=== PATIENT | female | born 1995 | race Caucasian/White ===

== ENCOUNTER 2017-03-21 10:25 | Emergency (ER) | payer OTHER ==
[2017-03-21 10:29] VITALS: BP 114/74; PULSE 73; TEMP 97.3; BMI 29.8
--- NOTE | 2017-03-21 11:42 | PDOC ---
History of Present Illness - General Chief Complaint: Ear Problem Stated Complaint: EAR PROBLEM, COLD SYMPTOMS Time Seen by Provider: 03/21/17 11:14 History Source: Patient Exam Limitations: No Limitations - History of Present Illness Initial Comments: CHIEF COMPLAINT: 21 y/o afebrile female c/o left earache and crusty eyes x 2 days. HISTORY OF PRESENT ILLNESS: Patient also admits to sore throat. She states she wakes up and her eyes are stuck shut with yellow crust. Patient denies f/c, n/v/ d, CP, SOB, abd pain. SHe has not taken anything for her symptoms. Past History - Past Medical History Allergies/Adverse Reactions: Allergies Allergy/AdvReac Type Severity Reaction Status Date / Time No Known Allergies Allergy Verified 03/21/17 10:29 Home Medications: Ambulatory Orders Amoxicillin - [Amoxicillin 500mg Capsule -] 500 mg PO BID #10 capsule 03/21/17 Erythromycin 0.5% Eye Ointment [Erythromycin 0.5% Eye Ointment -] 1 applic OU TID #1 tube 03/21/17 COPD: No Other medical history: DENIES MEDICAL HX - Immunization History Immunization Up to Date: Yes - Suicide/Smoking/Psychosocial Hx Smoking History: Never smoked Hx Alcohol Use: No Drug/Substance Use Hx: No Substance Use Type: None Review of Systems - Review of Systems Able to Perform ROS?: Yes Constitutional: No: Chills, Fever HEENTM: Yes: Ear Pain (left), Nose Congestion, Throat Pain, Other (Eye dishcarge ). No: Ear Discharge, Throat Swelling, Difficulty Swallowing Respiratory: Yes: Cough. No: Shortness of Breath Cardiac (ROS): No: Chest Pain ABD/GI: No: Symptoms Reported *Physical Exam - Vital Signs Last Vital Signs Temp Pulse Resp BP Pulse Ox 97.3 F L 73 16 114/74 100 03/21/17 10:27 03/21/17 10:27 03/21/17 10:27 03/21/17 10:27 03/21/17 10:27 - Physical Exam Comments: 21 y/o female non toxic but ill appearing with very congested sounding voice. General Appearance: Yes: Nourished, Appropriately Dressed HEENT: positive: EOMI, WILLIAM, Pharynx Normal, Nasal Congestion, TM Bulging (left) , TM Dull (left), TM Erythema (left), Other (pain with palpation of left pre auricular region; yellow crusting noted b/l medial canthus of eyes). negative: Pharyngeal Erythema, Tonsillar Exudate, Tonsillar Erythema (Uvula midline. NO soft/hard palate deformities. No petechia.) Neck: negative: Tender Medical Decision Making - Medical Decision Making A/P: 21 y/o female with left otitis media and b/l conjunctivitis Plan is to send rx for amox and erythromycin oitment to her pharmacy. Suggested tylenol or motrin for supportive care, plenty of fluids and rest. Pt instructed to return to the ER with any worsening or concerning symptoms. The patient verbalizes understanding of all instructions, has no further questions and is awaiting discharge. *DC/Admit/Observation/Transfer Diagnosis at time of Disposition: Otitis media Qualifiers: Otitis media type: suppurative Chronicity: acute Laterality: left Recurrence: not specified as recurrent Spontaneous tympanic membrane rupture: without spontaneous rupture Qualified Code(s): H66.002 - Acute suppurative otitis media without spontaneous rupture of ear drum, left ear Conjunctivitis Qualifiers: Conjunctivitis type: acute Acute conjunctivitis type: bacterial Laterality: bilateral Qualified Code(s): H10.33 - Unspecified acute conjunctivitis, bilateral - Discharge Dispostion Disposition: HOME Condition at time of disposition: Good - Prescriptions Prescriptions: Amoxicillin - [Amoxicillin 500mg Capsule -] 500 mg PO BID #10 capsule Erythromycin 0.5% Eye Ointment [Erythromycin 0.5% Eye Ointment -] 1 applic OU TID #1 tube - Referrals Referrals: Chaz Suarez MD [Primary Care Provider] - - Patient Instructions Printed Discharge Instructions: DI for Conjunctivitis, DI for Otitis Media ( Middle Ear Infection)-Child Additional Instructions: Discharge Instructions: -You have an ear infection and an eye infection -2 prescriptions have been sent to your pharmacy -Please take tylenol or motrin for pain/fever -Gargle with warm salt water -Eat cold/soft foods to help with sore throat -Drink plenty of fluids and get lots of rest -Return to the ER with any worsening or concerning symptoms - Post Discharge Activity Forms/Work/School Notes: Back to Work
== END 2017-03-21 12:06 | disposition home or self-care (01) ==
LOC: JERFT 10:25
DX: H66.002 Acute suppurative otitis media without spontaneous rupture of ear drum, left ear (principal); H10.33 Unspecified acute conjunctivitis, bilateral
CPT/HCPCS: 99281-25

== ENCOUNTER 2017-12-25 14:48 | Emergency (ER) | payer OTHER ==
[2017-12-25 14:54] VITALS: BMI 29.2
[2017-12-25] MEDS ORDERED: ACETAMINOPHEN 500 MG TABLET (FP) PO ONE (14:54)
--- NOTE | 2017-12-25 14:54 | PDOC ---
Rapid Medical Evaluation Time Seen by Provider: 12/25/17 14:50 Medical Evaluation: Allergies Allergy/AdvReac Type Severity Reaction Status Date / Time No Known Allergies Allergy Verified 10/11/17 07:36 12/25/17 14:50 I have performed a brief in-person evaluation of this patient. The patient presents with a chief complaint of: Fever, urinary frequency and vomiting Pertinent physical exam findings: Lungs CTAB. +BS. Abd SNTND. -CVAT b/l. I have ordered the following: urine The patient will proceed to the ED for further evaluation. Discharge Disposition - Diagnosis Urinary frequency - Referrals - Patient Instructions - Post Discharge Activity
[2017-12-25 15:44] LABS: URINE APPEARANCE CLEAR; URINE BILIRUBIN NEGATIVE (<2.0 mg/dL); URINE COLOR YELLOW; URINE GLUCOSE (UA) NEGATIVE (NEGATIVE); URINE KETONE 1+ (NEGATIVE); URINE LEUK ESTERASE 1+ (NEGATIVE); URINE NITRITE NEGATIVE (NEGATIVE); URINE PROTEIN NEGATIVE (NEGATIVE); URINE UROBILINOGEN NEGATIVE mg/dL (0.2-1.0)
--- NOTE | 2017-12-25 15:44 | PDOC ---
History of Present Illness - General Chief Complaint: Nausea/Vomiting Stated Complaint: NAUSEA/VOMITING Time Seen by Provider: 12/25/17 14:50 - History of Present Illness Initial Comments: 22yo with no significant past medical history complaining of fever of 100.1 x 1 day. Patient reports that her symptoms started while she was at work today and checked her temperature with a thermometer of 100.1. She endorses nausea, NBNB vomiting, and body aches. Denies throat pain, rhinorrhea, or post nasal drip. Last bowel movement was today and was diarrhea without blood. Denies chest pain. Currently endorses shortness of breath and right leg pain which she reports having intermittently over the past couple years. Patient works at a day care. Denies abdominal pain. Past History - Past Medical History Allergies/Adverse Reactions: Allergies Allergy/AdvReac Type Severity Reaction Status Date / Time No Known Allergies Allergy Verified 12/25/17 14:53 Home Medications: Ambulatory Orders NK [No Known Home Medication] 12/25/17 COPD: No - Immunization History Immunization Up to Date: Yes - Suicide/Smoking/Psychosocial Hx Smoking History: Never smoked Have you smoked in the past 12 months: No Information on smoking cessation initiated: No Hx Alcohol Use: No Drug/Substance Use Hx: No Substance Use Type: None Review of Systems - Review of Systems Comments:: Constitutional: +fever, +chills HEENT: no throat pain, no dysphagia Cardiovascular: no chest pain, no palpitations Respiratory: no cough, +shortness of breath Gastrointestinal: no abdominal pain, +nausea, +vomiting, +diarrhea Genitourinary: no dysuria, +frequency Musculoskeletal: no myalgia,+leg pain Skin: no rash, no itching Neurologic: no headache, no dizziness *Physical Exam - Vital Signs Last Vital Signs Temp Pulse Resp BP Pulse Ox 100.1 F H 116 H 16 130/72 99 12/25/17 14:51 12/25/17 14:51 12/25/17 14:51 12/25/17 14:51 12/25/17 15:36 - Physical Exam Comments: General: Awake, alert, and fully oriented, in no acute distress Head: No signs of trauma Eyes: EOMI, sclera anicteric ENT: Moist mucus membranes Neck: Normal ROM, supple Lungs: Lungs clear, Normal breath sounds Cardio: Regular rhythm, S1 and S2 present Abdomen: Soft, nontender. No guarding, no rebound, no masses Extremities: Normal range of motion, Distal pulses present SKIN: Warm, Dry, normal turgor Neurologic: Cranial nerves II through XII grossly intact. Normal speech ED Treatment Course - LABORATORY CBC & Chemistry Diagram: 12/25/17 15:31 12/25/17 15:31 - Medications Given in the ED: ED Medications Discontinued Medications Generic Name Dose Route Start Last Admin Trade Name Kaylynn PRN Reason Stop Dose Admin Acetaminophen 975 mg 12/25/17 14:54 12/25/17 15:03 Tylenol - PO 12/25/17 14:55 975 mg ONCE ONE Administration Medical Decision Making - Medical Decision Making 22yo with no significant past medical history complaining of fever of 100.1 x 1 day. -DDX includes but not limited to influenza, viral illness, cholelithiasis, gastroenteritis -Patient was tender in RUQ for Dr. Llanes's exam. RUQ ultrasound ordered. Patient reports intermittent pain in this area. No history of abdominal surgeries. -Labs: influenza negative, no anemia or leukocytosis, UA negative for UTI -RUQ US -EKG: rate 81, QTc 418, normal sinus rhythm -Tylenol and 1L NS: patient reports some palliation 12/25/17 17:49 RUQ negative for acute pathology. Will discharge. Patient amenable to plan. 12/25/17 18:04 *DC/Admit/Observation/Transfer Diagnosis at time of Disposition: Abdominal pain, Urinary frequency - Discharge Dispostion Disposition: HOME Condition at time of disposition: Improved - Referrals - Patient Instructions Printed Discharge Instructions: DI for Viral Gastroenteritis -- Adult Additional Instructions: You came to the ED with a fever. Blood work and ultrasound was unremarkable. Your symptoms are most likely due to a viral syndrome. Keep hydrated with plenty of fluids. You can take tylenol or motrin for pain. Follow the instructions on the medication bottle. Follow-up with your primary care physician, Dr. Yo, within the next five to seven days to discuss this ED visit and to further evaluate your symptoms. Immediate medical attention is required if you have: worsening pain, high fevers , persistent nausea, vomiting, or any new or concerning symptoms. If you think you are having an emergency, call for emergency medical services or present to the emergency department right away - Post Discharge Activity Forms/Work/School Notes: Back to Work
[2017-12-25 15:46] LABS: EPI CELLS FEW /HPF (FEW); URINE MUCUS MODERATE
[2017-12-25 15:54] LABS: HCG,QUALITATIVE URINE Negative
[2017-12-25 15:56] LABS: BASO % 0.3 % (0-2.0); EOS % 0.5 % (0-4.5); HEMATOCRIT 39.5 % (32.4-45.2); LYMPH % 2.4 % (8-40); MCH 26.4 pg (25.7-33.7); MCHC 32.9 g/dl (32.0-36.0); MEAN CELL VOLUME 80.1 fl (80-96); MEAN PLT VOLUME 9.6 fl (7.5-11.1); NEUT % 93.8 % (42.8-82.8); PLATELET COUNT 175 K/MM3 (134-434); RBC 4.93 M/mm3 (3.60-5.2); RDW 14.8 % (11.6-15.6); WHITE BLOOD COUNT 9.5 K/mm3 (4.0-10.0)
[2017-12-25 16:23] LABS: ALBUMIN 4.2 g/dl (3.4-5.0); ALK PHOS 73 U/L (45-117); ANION GAP 7 MMOL/L (8-16); BILIRUBIN,TOTAL 1.8 mg/dL (0.2-1); BLOOD UREA NITROGEN 13 mg/dL (7-18); CALCIUM 8.9 mg/dL (8.5-10.1); CHLORIDE 103 mmol/L (98-107); CO2 25 mmol/L (21-32); CREATININE 0.7 mg/dL (0.55-1.3); GLUCOSE,RANDOM 108 mg/dL (74-106); LIPASE 208 U/L (73-393); POTASSIUM 3.9 mmol/L (3.5-5.1); SGOT/AST 16 U/L (15-37); SGPT/ALT 19 U/L (13-61); SODIUM 135 mmol/L (136-145); TOT PROT 8.3 g/dl (6.4-8.2)
[2017-12-25] MEDS ORDERED: SODIUM CHLORIDE 1,000 ML IV STA (16:23)
--- NOTE | 2017-12-25 17:06 | PDOC ---
Attending Attestation - Resident Resident Name: Katiana Crockett - ED Attending Attestation I have performed the following: I have examined & evaluated the patient, The case was reviewed & discussed with the resident, I agree w/resident's findings & plan, Exceptions are as noted - HPI HPI: 12/25/17 17:03 22 F with h/o pancreatic cysts s/p removal, presenting with fevers, nausea, vomiting, and diarrhea. Pt states that her symptoms began yesterday. She reports diffuse abdominal cramps associated with vomiting several times. Also reports a few episodes of watery brown diarrhea. Pt also has had fevers since yesterday. Does not know what her Tmax is. Pt denies CP/SOB. Denies flank pain. Endorses frequent urination but no dysuria. 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 - Physicial Exam PE: 12/25/17 17:05 GENERAL: Awake, alert, and fully oriented, in no acute distress. HEAD: No signs of trauma EYES: PERRLA, EOMI, sclera anicteric, conjunctiva clear ENT: Auricles normal inspection, hearing grossly normal, nares patent, oropharynx clear without exudates. Moist mucosa NECK: Nontender, no stepoffs, Normal ROM, supple, no lymphadenopathy, JVD, or masses LUNGS: Breath sounds equal, clear to auscultation bilaterally. No wheezes, and no crackles HEART: Regular rate and rhythm, normal S1 and S2, no murmurs, rubs or gallops ABDOMEN: + epigastric TTP, negative olsen's, normoactive bowel sounds. No guarding, no rebound. No masses EXTREMITIES: Normal range of motion, no edema. No clubbing or cyanosis. No cords, erythema, or tenderness NEUROLOGICAL: Cranial nerves II through XII intact. 5/5 strength and sensation in all extremities, Normal speech, normal gait, normal cerebellar function SKIN: Warm, Dry, normal turgor, no rashes or lesions noted. - Medical Decision Making 12/25/17 17:05 22 F with fevers, N+V+D. Exam notable for epigastric TTP. Negative olsen's. No lower abdominal tenderness or CVAT. Likely viral gastroenteritis given sick contacts. Also consider UTI as pt reports frequent urination. - Labs, lipase - UA, UPT - Flu swab - IVF, tylenol 12/25/17 17:38 Labs notable for bili 1.8 Pt with negative olsen's but will evaluate for gallbladder pathology with US 12/25/17 18:04 US negative Pt's UA with 1+ LE and 4 WBCs. Will defer tx until UCx returns Pt reassessed - vitals now wnl Pt states she feels much better. Pt is well appearing, with normal vitals. Clinically stable for DC at this time. I discussed the physical exam findings, ancillary test results and final diagnoses with the patient. I answered all of the patient's questions. The patient was satisfied with the care received and felt comfortable with the discharge plan and treatment plan. The patient agrees to follow up with the primary care physician within 24-72 hours.
[2017-12-25 18:29] VITALS: BP 110/71; PULSE 81; TEMP 98.6
[2017-12-25 18:53] LABS: PLATELET ESTIMATE ADEQUATE
--- NOTE | 2017-12-26 11:51 | EKG ---
Test Reason : Blood Pressure : / mmHG Vent. Rate : 081 BPM Atrial Rate : 081 BPM P-R Int : 144 ms QRS Dur : 088 ms QT Int : 360 ms P-R-T Axes : 057 067 045 degrees QTc Int : 418 ms NORMAL SINUS RHYTHM NORMAL ECG NO PREVIOUS ECGS AVAILABLE Confirmed by BALTAZAR APARICIO MD ([id number]) on 12/26/2017 11:50:54 AM Referred By: Confirmed By:BALTAZAR APARICIO MD
== END 2017-12-25 18:28 | disposition home or self-care (01) ==
LOC: JER 14:48
PROC: 3E0337Z Introduction of Electrolytic and Water Balance Substance into Peripheral Vein, Percutaneous Approach (ICD-10-PCS; principal; 2017-12-25)
DX: R10.9 Unspecified abdominal pain (principal); R35.0 Frequency of micturition
CPT/HCPCS: 36415; 76705-TC; 80053; 81003; 81015; 83690; 84703; 85025; 87086; 87804; 93005; 93010; 96360; 99284-25; J7030

== ENCOUNTER 2018-12-12 10:38 | Emergency (ER) | payer OTHER ==
[2018-12-12 10:45] VITALS: BP 121/63; PULSE 64; TEMP 98.1; BMI 26.4
[2018-12-12] MEDS ORDERED: PYRIDOXINE HCL (B-6) 100 MG TABLET PO ONE (11:02)
[2018-12-12] MEDS ORDERED: SODIUM CHLORIDE 1,000 ML IV STA (11:02)
--- NOTE | 2018-12-12 11:05 | PDOC ---
History of Present Illness - General Chief Complaint: Nausea/Vomiting Stated Complaint: VOMITING/NAUSEA (5 WKS PREG) Time Seen by Provider: 12/12/18 11:01 - History of Present Illness Initial Comments: 12/12/18 11:06 23 yo , A1, LMP 11/04/18, at 5 wga with h/o pancreatic cyst removal who p/w vomiting. Patient reports onset of multiple episodes NBNB emesis, beginning 12/10/18. Endorses intermittent, crampy, epigastric and RUQ pain aggravated with PO intake beginning 12/10/18. Patient reports visit to [facility] (12/08/18) with positive office preg. Patient denies ERIC, vision change, palpitations, wheezing, orthopena, PND, leg swelling/pain, F,C, CP, SOB, urinary complaints, hematuria, BPR, pelvic pain, vaginal bleeding/discharge/burning/itching, diarrhea, constipation, lightheadedness, weakness, sensory changes. Normal bowel habits. Denies OTC symptom management. Denies Etoh, IVDA, tobacco use. NKDA Past History - Past Medical History Allergies/Adverse Reactions: Allergies Allergy/AdvReac Type Severity Reaction Status Date / Time No Known Allergies Allergy Verified 12/12/18 10:41 Home Medications: Ambulatory Orders Cephalexin Monohydrate [Keflex -] 500 mg PO Q8H #21 capsule MDD 3 tab 12/12/18 Metoclopramide Oral Soln [Reglan Oral Solution -] 5 ml PO BID PRN #60 ml MDD 10 ml 12/12/18 Pyridoxine HCl (B-6) [Vitamin B6 -] 50 mg PO DAILY PRN #15 tablet MDD 1 tab 03/01 COPD: No - Immunization History Immunization Up to Date: Yes - Psycho Social/Smoking Cessation Hx Smoking History: Never smoked Have you smoked in the past 12 months: No Hx Alcohol Use: No Drug/Substance Use Hx: No Substance Use Type: None Review of Systems - Review of Systems Comments:: 12/12/18 11:04 GENERAL/CONSTITUTIONAL: No fever or chills. No weakness. HEAD, EYES, EARS, NOSE AND THROAT: No change in vision. No ear pain or discharge. No sore throat. CARDIOVASCULAR: No chest pain or shortness of breath RESPIRATORY: No cough, wheezing, or hemoptysis. GASTROINTESTINAL: + nausea, vomiting, epigastric pain. No diarrhea or constipation. GENITOURINARY: No dysuria, frequency, or change in urination. MUSCULOSKELETAL: No joint or muscle swelling or pain. No neck or back pain. SKIN: No rash NEUROLOGIC: No headache, vertigo, loss of consciousness, or change in strength/ sensation. ENDOCRINE: No increased thirst. No abnormal weight change HEMATOLOGIC/LYMPHATIC: No anemia, easy bleeding, or history of blood clots. ALLERGIC/IMMUNOLOGIC: No hives or skin allergy. *Physical Exam - Vital Signs Last Vital Signs Temp Pulse Resp BP Pulse Ox 98.1 F 64 18 121/63 99 12/12/18 10:42 12/12/18 10:42 12/12/18 10:42 12/12/18 10:42 12/12/18 10:42 - Physical Exam Comments: 12/12/18 11:04 GENERAL: Awake, alert, and fully oriented, in no acute distress HEAD: No signs of trauma, normocephalic, atraumatic EYES: PERRLA, EOMI, sclera anicteric, conjunctiva clear ENT: Hearing grossly normal, nares patent, oropharynx clear without exudates. Moist mucosa NECK: Normal ROM, supple, no lymphadenopathy, JVD, or masses LUNGS: No distress, speaks full sentences, clear to auscultation bilaterally HEART: Regular rate and rhythm, normal S1 and S2, no murmurs, rubs or gallops, peripheral pulses normal and equal bilaterally. ABDOMEN: + RUQ and epigastria ttp. + Suprpapubic ttp.Soft, NDS, normoactive bowel sounds. No guarding, no rebound. No masses,. Neg CVA ttp. EXTREMITIES : Normal inspection, Normal range of motion, no edema. No clubbing or cyanosis NEUROLOGICAL: Cranial nerves II through XII grossly intact. Normal speech, normal gait, no focal sensorimotor deficits SKIN: Warm, Dry, normal turgor, no rashes or lesions noted ED Treatment Course - LABORATORY CBC & Chemistry Diagram: 12/12/18 12:00 12/12/18 12:00 Medical Decision Making - Medical Decision Making 12/12/18 11:03 23 yo , A1, LMP 11/04/18, at 5 wga with h/o pancreatic cyst removal who p/w vomiting and epigastirc/RUQ pain beginning 12/10/18. Vitals wnl, AF, a&Ox3. Physical exam notable for epigastric and RUQ ttp. + Suprpapubic ttp. Denies F,C , CP, SOB, urinary complaints, hematuria, BPR, pelvic pain, vaginal bleeding/ discharge/burning/itching, diarrhea, constipation, lightheadedness, weakness, sensory changes. Possible gastritis, enteritis, colitis, biliary dz., pancreatitis, cystitis. Will assess for viable IUP and evaluate for hypoglycemia , electrolyte abnml, metabolic and toxic derrangements, acid-base disturbances, infection Ed Course: B6, Famotidine 12/12/18 13:21 Laboratory Tests 12/12/18 12/12/18 12/12/18 12:00 12:00 12:00 WBC 11.1 H Hgb 12.0 Hct 36.1 Plt Count 238 D Beta HCG, Quant 62442.5 Urine Color Yellow Urine Appearance Cloudy Urine Blood Negative Urine Nitrite Negative Ur Leukocyte Esterase Trace Urine WBC (Auto) 10 Urine RBC (Auto) 2 Urine Bacteria (Auto) 311.8 12/12/18 14:09 Bedside POC RUQ, Trasnabdominal U/S: Unremarkable, pole visualized Patient tolerating PO intake Stable for d/c with return precautions. Keflex sent to pharmacy, treated for UTI Discharge - Discharge Information Problems reviewed: Yes Clinical Impression/Diagnosis: Vomiting - Admission No - Additional Discharge Information Prescriptions: Cephalexin Monohydrate [Keflex -] 500 mg PO Q8H #21 capsule MDD 3 tab Metoclopramide Oral Soln [Reglan Oral Solution -] 5 ml PO BID PRN #60 ml MDD 10 ml PRN Reason: Nausea And/Or Vomiting Pyridoxine HCl (B-6) [Vitamin B6 -] 50 mg PO DAILY PRN #15 tablet MDD 1 tab PRN Reason: Nausea - Follow up/Referral - Patient Discharge Instructions Patient Printed Discharge Instructions: Support (Alternative Therapy) , DI for Hyperemesis Gravidarum Additional Instructions: Please return to the emergency department with any new or worsening symptoms or concerns. Please follow up with your primary care physician within 72 hours. Please take Keflex three times a day for urinary tract infection. - Post Discharge Activity
[2018-12-12] MEDS ORDERED: FAMOTIDINE 20 MG/50 ML IVPB 20 MG/50 ML MG IVPB ONE ×2 (11:25→12:21)
[2018-12-12] MEDS ORDERED: METOCLOPRAMIDE HCL INJECTION 10 MG/2 ML VIAL IVPUSH ONE (12:11)
[2018-12-12] MEDS ORDERED: METOCLOPRAMIDE HCL INJECTION 10 MG/2 ML VIAL ONE (12:21)
[2018-12-12 12:29] LABS: BASO % 0.4 % (0-2.0); EOS % 0.3 % (0-4.5); HEMATOCRIT 36.1 % (32.4-45.2); LYMPH % 11.5 % (8-40); MCH 27.1 pg (25.7-33.7); MCHC 33.2 g/dl (32.0-36.0); MEAN CELL VOLUME 81.5 fl (80-96); MEAN PLT VOLUME 9.4 fl (7.5-11.1); MONO % 4.1 % (3.8-10.2); NEUT % 83.7 % (42.8-82.8); PLATELET COUNT 238 K/MM3 (134-434); RBC 4.43 M/mm3 (3.60-5.2); RDW 15.6 % (11.6-15.6); WHITE BLOOD COUNT 11.1 K/mm3 (4.0-10.0)
[2018-12-12 12:30] LABS: EPI CELLS 9.4 /HPF (0-5/HPF); HYALINE CASTS 11 /lpf (0-8); PH,URINE 5.5 (5.0-8.0); URINE APPEARANCE CLOUDY; URINE BACTERIA 311.8 /hpf (NEGATIVE); URINE BILIRUBIN NEGATIVE (NEGATIVE); URINE COLOR YELLOW; URINE GLUCOSE (UA) NEGATIVE (NEGATIVE); URINE KETONE 4+ (NEGATIVE); URINE LEUK ESTERASE TRACE (NEGATIVE); URINE NITRITE NEGATIVE (NEGATIVE); URINE PROTEIN TRACE (NEGATIVE); URINE RBC 2 /hpf (0-4); URINE UROBILINOGEN 0.2 mg/dL (0.2-1.0); URINE WBC 10 /hpf (0-5)
[2018-12-12] MEDS ORDERED: CEPHALEXIN MONOHYDRATE 500 MG CAPSULE (UD) PO ONE (12:56)
[2018-12-12 13:02] LABS: ALBUMIN 3.9 g/dl (3.4-5.0); BILIRUBIN,TOTAL 1.2 mg/dL (0.2-1); BLOOD UREA NITROGEN 8.1 mg/dL (7-18); CALCIUM 9.4 mg/dL (8.5-10.1); CREATININE 0.6 mg/dL (0.55-1.3); TOT PROT 7.8 g/dl (6.4-8.2)
--- NOTE | 2018-12-12 13:35 | PDOC ---
Attending Attestation - Resident Resident Name: SanthoshDaleCm - ED Attending Attestation I have performed the following: I have examined & evaluated the patient, The case was reviewed & discussed with the resident, I agree w/resident's findings & plan - HPI HPI: 12/12/18 13:35 23 yo , A1, LMP 11/04/18, at 5 wga with h/o pancreatic cyst removal who p/w vomiting. Patient reports onset of multiple episodes NBNB emesis, beginning 12/10/18. Endorses intermittent, crampy, epigastric and RUQ pain aggravated with PO intake beginning 12/10/18. Patient reports visit to [facility] (12/08/18) with positive office preg. Patient denies ERIC, vision change, palpitations, wheezing, orthopena, PND, leg swelling/pain, F,C, CP, SOB, urinary complaints, hematuria, BPR, pelvic pain, vaginal bleeding/discharge/burning/itching, diarrhea, constipation, lightheadedness, weakness, sensory changes. Normal bowel habits. Denies OTC symptom management. Denies Etoh, IVDA, tobacco use. NKDA - Physicial Exam PE: 12/12/18 13:38 Vital Signs Temp Pulse Resp BP Pulse Ox 98.1 F 64 18 121/63 99 12/12/18 10:42 12/12/18 10:42 12/12/18 10:42 12/12/18 10:42 12/12/18 10:42 Agree with the resident's HPI and PE as documented in the electronic medical record. NAD, well appearing, EOMI, PERRL, nl conjunctiva, anicteric; neck supple. lungs clear, RRR, abdomen soft nontender. no CVAT. no rebound, guarding. Back nontender. JOHNSON x4, no focal neuro deficits. No peripheral edema. normal color for ethnicity, WWP. 12/12/18 14:07 - Medical Decision Making 12/12/18 14:07 Vital Signs Temp Pulse Resp BP Pulse Ox 98.1 F 64 18 121/63 99 12/12/18 10:42 12/12/18 10:42 12/12/18 10:42 12/12/18 10:42 12/12/18 10:42 DDx female VB: ectopic , miscarriage, demise, subchorionic hematoma, retained POC, normal first trimester bleeding, UTI in in . Fibroid uterus, vaginitis, infection, electrolyte/metabolic derangements, anemia. no VB, no Txs indicated VS wnl, normotensive, no tachy or hypoxia/respiratory distress. abdomen benign on reeval and no peritoneal findings, no VB here Beta hcg [id number] Bedside TAB with IUP seen, +FP measuring 6 weeks by estimation. no pelvic FF. pocus biliary neg for stones or acute sara. renal neg for hydro. labs and lytes normal. UA +UTI, Bacturia of , with wbcs, will treat with keflex, f/u urine culture. Dispo: OB followup women to women, bleeding precautions; return to ED if persistent and heavy vaginal bleeding, persistent pelvic pain not relieved by your prescribed medications, dizziness, shortness of breath, new and persistent fevers, other foul smelling discolored vaginal discharge, or for any other concerns. 12/12/18 14:08 12/12/18 14:14 Procedures - Bedside Ultrasound Bedside Ultrasound: fisher lampara net Remarks: 12/12/18 13:45 Bedside pelvic US performed for female with VB and /or abdominal pain. views obtained: _, findings include live IUP visualized dated at, [facility]_. Impression: live IUP. POCUS renal exam performed, indication includes abdominal/flank pain. views obtained: bilateral kidneys in short and long axis, bladder. findings: no evidence of hydronephrosis. Impression: POCUS biliary exam: Indication: abdominal pain Views: gallbladder long and s hort axis, CBD Findings: no stones or GB wall thickening or pericholecystic fluid, normal CBD < 3mm for age. Neg sono murphys Impression: no acute findings. No cholelithiasis or cholecystitis.
== END 2018-12-12 12:30 | disposition home or self-care (01) ==
LOC: JER 10:38
PROC: 3E033GC Introduction of Other Therapeutic Substance into Peripheral Vein, Percutaneous Approach (ICD-10-PCS; principal; 2018-12-12)
DX: R10.2 Pelvic and perineal pain (principal); O26.90 Pregnancy related conditions, unspecified, unspecified trimester; R11.10 Vomiting, unspecified
CPT/HCPCS: 36415; 76705-TC; 76775; 76815; 80053; 81003; 83690; 84702; 85025; 96361; 96365; 96375; 99283-25; J7030

== ENCOUNTER 2020-05-07 02:26 | Emergency (ER) | payer OTHER ==
[2020-05-07 02:58] VITALS: BP 134/86; PULSE 73; TEMP 98.6; BMI 25.7
== END 2020-05-07 04:58 | disposition home or self-care (01) ==
LOC: JER 02:26
PROC: 0HQ1XZZ Repair Face Skin, External Approach (ICD-10-PCS; principal; 2020-05-07)
DX: S01.81XA Laceration without foreign body of other part of head, initial encounter (principal); W01.198A Fall on same level from slipping, tripping and stumbling with subsequent striking against other object, initial encounter
CPT/HCPCS: 99282-25

== ENCOUNTER 2020-06-12 03:04 | Emergency (ER) | payer OTHER ==
[2020-06-12 03:20] VITALS: TEMP 98.3; BMI 25.7
[2020-06-12 03:53] LABS: EPI CELLS 26 /uL (0-25.1); HYALINE CASTS 1 /uL (0-3.1); URINE APPEARANCE CLEAR; URINE BACTERIA 142 /uL (0-1359); URINE BILIRUBIN NEGATIVE (NEGATIVE); URINE COLOR YELLOW; URINE GLUCOSE (UA) NEGATIVE (NEGATIVE); URINE KETONE NEGATIVE (NEGATIVE); URINE LEUK ESTERASE 2+ (NEGATIVE); URINE NITRITE NEGATIVE (NEGATIVE); URINE PROTEIN NEGATIVE (NEGATIVE); URINE RBC 49 /uL (0-23.9); URINE UROBILINOGEN 0.2 mg/dL (0.2-1.0); URINE WBC 72 /uL (0-25.8)
[2020-06-12] MEDS ORDERED: FLUCONAZOLE 150 MG TABLET PO ONE ×2 (04:10→04:29)
[2020-06-12 04:33] VITALS: BP 120/78; PULSE 82
== END 2020-06-12 04:33 | disposition home or self-care (01) ==
LOC: JER 03:04
DX: B37.3 Candidiasis of vulva and vagina (principal)
CPT/HCPCS: 36415; 81003; 84703; 87086; 87491; 87591; 87661; 99283-25

== ENCOUNTER 2020-11-23 22:55 | Emergency (ER) | payer OTHER ==
[2020-11-23 23:08] VITALS: BP 135/73; PULSE 86; TEMP 98.3; BMI 25.0
[2020-11-24 00:33] LABS: HCG,QUALITATIVE URINE Positive
[2020-11-24 00:37] LABS: EPI CELLS 20 /uL (0-25.1); HYALINE CASTS 1 /uL (0-3.1); URINE APPEARANCE TURBID; URINE BACTERIA 203 /uL (0-1359); URINE BILIRUBIN NEGATIVE (NEGATIVE); URINE COLOR YELLOW; URINE GLUCOSE (UA) NEGATIVE (NEGATIVE); URINE KETONE NEGATIVE (NEGATIVE); URINE LEUK ESTERASE TRACE (NEGATIVE); URINE NITRITE NEGATIVE (NEGATIVE); URINE PROTEIN NEGATIVE (NEGATIVE); URINE RBC 3 /uL (0-23.9); URINE WBC 3 /uL (0-25.8)
[2020-11-24] MEDS: ONDANSETRON *ODT* 4 MG TABLET SL ONE ×2 (01:06→01:18)
[2020-11-24] MEDS ORDERED: ONDANSETRON *ODT* 4 MG TABLET ONE (01:07)
== END 2020-11-24 01:19 | disposition home or self-care (01) ==
LOC: JER 22:55
DX: O21.0 Mild hyperemesis gravidarum (principal)
CPT/HCPCS: 81003; 84703; 99283-25; Q0162

== ENCOUNTER 2023-05-07 22:16 | Emergency (ER) | payer SELFPAY ==
[2023-05-07 22:28] VITALS: BP 123/74; PULSE 68; RESP 20; TEMP 98.2; BMI 25.7
[2023-05-07] MEDS ORDERED: IBUPROFEN 600 MG TABLET (FP) PO ONE (23:29)
[2023-05-07] MEDS ORDERED: CEPHALEXIN MONOHYDRATE 500 MG CAPSULE (UD) ONE (23:29)
[2023-05-07] MEDS: IBUPROFEN 600 MG TABLET (FP) PO ONE (23:30)
[2023-05-07] MEDS: CEPHALEXIN MONOHYDRATE 500 MG CAPSULE (UD) PO ONE (23:30)
[2023-05-07] MEDS: MUPIROCIN CA 2% TOPICAL CREAM 15 GM TUBE TP ONE (23:33)
== END 2023-05-07 23:39 | disposition home or self-care (01) ==
LOC: JER 22:16 → JERFT 22:16
DX: R10.32 Left lower quadrant pain (principal); L72.0 Epidermal cyst
CPT/HCPCS: 99283-25

== ENCOUNTER 2023-10-17 00:54 | Emergency (ER) | payer OTHER ==
[2023-10-17 01:04] VITALS: BP 107/65; PULSE 75; RESP 16; TEMP 98.1; BMI 23.3
[2023-10-17] MEDS ORDERED: LIDOCAINE HCL 1%, 10 MG/ML (20ML VIAL) ONE (01:30)
[2023-10-17] MEDS: LIDOCAINE HCL 1%, 10 MG/ML (50 mL VIAL) SQ ONE (01:31)
[2023-10-17] MEDS ORDERED: DOXYCYCLINE HYCLATE 100 MG CAPSULE PO ONE (01:40)
[2023-10-17] MEDS: DOXYCYCLINE HYCLATE 100 MG CAPSULE PO ONE (01:48)
== END 2023-10-17 02:07 | disposition home or self-care (01) ==
LOC: JER 00:54
PROC: 0H97XZZ Drainage of Abdomen Skin, External Approach (ICD-10-PCS; principal; 2023-10-17)
DX: L02.211 Cutaneous abscess of abdominal wall (principal)
CPT/HCPCS: 76857; 99284-25

== ENCOUNTER 2023-11-21 00:32 | Emergency (ER) | payer OTHER ==
[2023-11-21 00:41] VITALS: BP 134/84; PULSE 90; RESP 16; TEMP 98.6; BMI 23.3
== END 2023-11-21 01:27 | disposition home or self-care (01) ==
LOC: JER 00:32
DX: L02.214 Cutaneous abscess of groin (principal)
CPT/HCPCS: 99283-25